=== PATIENT | male | born 1980 ===

== ENCOUNTER 2021-12-29 21:58 | Inpatient (IN) ==
[2021-12-29] MEDS ORDERED: Acetaminophen IV 1 GM/100ML 100 ML IV PRN (23:22)
[2021-12-30] MEDS: Acetaminophen IV 1 GM/100ML 100 ML IV PRN ×2 (05:10→23:06)
[2021-12-30 05:57] LABS: ABS Eosinophils 0.1 10^3/ul (0-0.6); ABS Lymphocytes 1.7 10^3/ul (1.0-4.8); ABS Monocytes 0.7 10^3/ul (0-0.8); ABS Neutrophils 4.2 10^3/ul (1.5-7.7); Eosinophil % 1.3 %; Hematocrit 40 % (42-52); Hemoglobin 13.4 g/dL (14.0-18.0); Mean Corpuscular HGB Conc 34 g/dL (31-36); Mean Corpuscular Hemoglobin 32 pg (27-31); Mean Corpuscular Volume 94 fL (80-94); Mean Platelet Volume 8.1 fL (7.4-10.4); Nucleated Red Blood Cells % 0.1; Platelet Count 215 10^3/uL (150-450); Red Cell Distribution Width 14 % (10-15); White Blood Count 6.8 10^3/uL (3.5-10.8)
[2021-12-30 06:21] LABS: Calcium 9.3 mg/dL (8.6-10.3); Potassium 3.8 mmol/L (3.5-5.0); eGFR CKD-EPI 78.1 (>60)
[2021-12-30] MEDS ORDERED: fentaNYL 100 mcg/2 ml 50 MCG/ML VIAL IV SLOW PU PRN (07:00)
[2021-12-30] MEDS: Lactated Ringers 1000 ml BAG 1,000 ML IV SCH ×2 (07:22→23:06)
[2021-12-30] MEDS ORDERED: Rocuronium 50 mg VIAL 10 mg/ml 5 ml VIAL (50 mg) ONE ×4 (11:27→15:10)
[2021-12-30] MEDS ORDERED: Lidocaine 2% PF 5 ML VIAL ONE (11:27)
[2021-12-30] MEDS ORDERED: Propofol 10 MG/ML 20 ML BTL ONE ×3 (11:27→15:02)
[2021-12-30] MEDS ORDERED: Midazolam 5 mg/5 ml VIAL 1 mg/ml 5 ml VIAL (5 mg) ONE (11:27)
[2021-12-30] MEDS ORDERED: fentaNYL 250 mcg/5 ml 50 MCG/ML 5 ml VIAL (250 MCG) ONE (11:28)
[2021-12-30] MEDS ORDERED: Ketamine HCL 50 mg/ml 10 ml VIAL (500 MG) ONE (12:54)
[2021-12-30] MEDS ORDERED: ceFAZolin 2 GM in NS PREMIX 2 GM/100 ML BAG IVPB ONE (13:17)
[2021-12-30] MEDS ORDERED: Acetaminophen IV 1 GM/100ML 100 ML IV ONE (13:28)
[2021-12-30] MEDS ORDERED: HYDROmorphone 0.5 MG/0.5 ML SYRINGE ONE ×2 (13:36→15:38)
[2021-12-30] MEDS ORDERED: Ondansetron 4 mg VIAL 2 MG/ML 2 ml VIAL ONE ×2 (13:37→18:07)
[2021-12-30] MEDS ORDERED: Dexamethasone IV 4 MG/ML VIAL 1 ml VIAL ONE ×2 (13:37)
[2021-12-30] MEDS ORDERED: HYDROcodone/ACETAMIN 5/325 mg TAB PO PRN (16:48)
[2021-12-30] MEDS ORDERED: Naloxone 0.4 mg VIAL 0.4 mg/ml 1 ml VIAL IV PRN (16:48)
[2021-12-30] MEDS ORDERED: Ondansetron 4 mg VIAL 2 MG/ML 2 ml VIAL IV PRN (16:48)
[2021-12-30] MEDS: Ondansetron 4 mg VIAL 2 MG/ML 2 ml VIAL IV PRN (20:16)
[2021-12-30] MEDS: ceFAZolin 1 GM Q8H (ADVAN) IVPB SCH (21:21)
[2021-12-31] MEDS: ceFAZolin 1 GM Q8H (ADVAN) IVPB SCH ×2 (05:14→13:28)
[2021-12-31] MEDS: Acetaminophen IV 1 GM/100ML 100 ML IV PRN (05:46)
[2021-12-31 06:11] LABS: ABS Lymphocytes 1.1 10^3/ul (1.0-4.8); ABS Neutrophils 9.3 10^3/ul (1.5-7.7); Hematocrit 38 % (42-52); Hemoglobin 13.1 g/dL (14.0-18.0); Lymphocyte % 9.8 %; Mean Corpuscular HGB Conc 34 g/dL (31-36); Mean Corpuscular Hemoglobin 32 pg (27-31); Mean Corpuscular Volume 94 fL (80-94); Mean Platelet Volume 8.1 fL (7.4-10.4); Nucleated Red Blood Cells % 0.1; Platelet Count 250 10^3/uL (150-450); Red Blood Count 4.09 10^6 /uL (4.18-5.48); Red Cell Distribution Width 14 % (10-15); White Blood Count 11.5 10^3/uL (3.5-10.8)
[2021-12-31 06:24] LABS: Calcium 9.2 mg/dL (8.6-10.3); Potassium 4.3 mmol/L (3.5-5.0); eGFR CKD-EPI 85.7 (>60)
[2021-12-31] MEDS: Lactated Ringers 1000 ml BAG 1,000 ML IV SCH (08:33)
[2021-12-31] MEDS: Enoxaparin 40 MG/0.4 ML SYR SUBCUT SCH (08:37)
[2021-12-31] MEDS ORDERED: Morphine 4 MG/ML VIAL (1 ml) ONE (11:28)
[2021-12-31] MEDS: Ondansetron 4 mg VIAL 2 MG/ML 2 ml VIAL IV PRN (11:39)
[2022-01-01 06:21] LABS: ABS Basophils 0.1 10^3/ul (0-0.2); ABS Eosinophils 0.2 10^3/ul (0-0.6); ABS Lymphocytes 2.1 10^3/ul (1.0-4.8); ABS Monocytes 0.8 10^3/ul (0-0.8); Eosinophil % 2.1 %; Hematocrit 36 % (42-52); Hemoglobin 12.4 g/dL (14.0-18.0); Lymphocyte % 26.2 %; Mean Corpuscular HGB Conc 35 g/dL (31-36); Mean Corpuscular Hemoglobin 33 pg (27-31); Mean Corpuscular Volume 96 fL (80-94); Platelet Count 215 10^3/uL (150-450); Red Blood Count 3.72 10^6 /uL (4.18-5.48); Red Cell Distribution Width 13 % (10-15); White Blood Count 8.1 10^3/uL (3.5-10.8)
[2022-01-01 06:36] LABS: Calcium 8.7 mg/dL (8.6-10.3); Potassium 4.1 mmol/L (3.5-5.0)
[2022-01-01] MEDS: Ondansetron 4 mg VIAL 2 MG/ML 2 ml VIAL IV PRN (08:02)
[2022-01-01] MEDS: Enoxaparin 40 MG/0.4 ML SYR SUBCUT SCH (08:03)
[2022-01-01 11:52] VITALS: BP 129/85
== END 2022-01-01 15:45 | disposition home or self-care (01) | DRG 314 ==
LOC: SSU 21:58 → SUATTDRO 21:58
PROVIDERS: ADMIT Internal Medicine; ATTEND Orthopaedic Surgery